=== PATIENT | female | born 1970 | race Caucasian/White ===

== ENCOUNTER 2016-12-31 16:54 | Emergency (ER) | payer BC, OTHER ==
[~2016-12-31] VITALS: Ht 154.9 cm; Wt 68.0 kg
--- NOTE | 2016-12-31 17:25 | NUR ---
MEDICATED PT ORDERED
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
[2016-12-31] MEDS ORDERED: ONDANSETRON 4 MG TAB.RAPDIS ONE (17:37)
[2016-12-31] MEDS ORDERED: TDAP [DIPH/PERTUSSIS/TET] 0.5 ML VIAL IM ONE (17:37)
[2016-12-31] MEDS ORDERED: ACETAMINOPHEN ES 500 MG TABLET ONE (17:37)
[2016-12-31] MEDS: ACETAMINOPHEN ES 500 MG TABLET PO ONE (17:45)
[2016-12-31] MEDS: ONDANSETRON 4 MG TAB.RAPDIS SL ONE (17:45)
[2016-12-31] MEDS: TDAP [DIPH/PERTUSSIS/TET] 0.5 ML VIAL IM ONE (17:45)
--- NOTE | 2016-12-31 17:49 | NUR ---
WPUND CARE DONE
--- NOTE | 2016-12-31 18:04 | NUR ---
Patient discharged to home in stable condition. Written and verbal after care instructions given. Patient verbalizes understanding of instruction.
[2016-12-31 18:05] VITALS: BP 129/67
== END 2016-12-31 18:05 | disposition home or self-care (01) ==
LOC: ER 16:57
DX: S01.81XA Laceration without foreign body of other part of head, initial encounter (principal); F32.9 Major depressive disorder, single episode, unspecified; W01.198A Fall on same level from slipping, tripping and stumbling with subsequent striking against other object, initial encounter; Y92.480 Sidewalk as the place of occurrence of the external cause; Y93.01 Activity, walking, marching and hiking; Y99.8 Other external cause status
CPT/HCPCS: 12011; 90471; 90715; 99283; A4606; A6402; Q0162; Z7610